=== PATIENT | male | born 1950 | race Caucasian/White ===

== ENCOUNTER 2016-04-17 12:22 | Day surgery (SDC) | payer MEDICARE, MEDICAID ==
[~2016-04-17] VITALS: Ht 165.1 cm; Wt 74.8 kg
--- NOTE | 2016-04-17 14:00 | Operative Note ---
Upper GI Endoscopy Procedure date: 04/17/16 Date of : 54 Procedure:Upper GI Endoscopy Esophagogastroduodenoscopy with cold biopsies and TTS balloon dilation Indications: Mr. Olivia is a 66-year-old gentleman with a history of Jacobson's esophagus. He also has had swallowing difficulty and some episodic emesis. He also has chronic constipation. His last upper endoscopy was more than 5 years ago in [facility]. He is on omeprazole by mouth twice a day. He does have anorexia but no weight loss. All of his blood work has recently been normal. He has been placed on a fiber bowel regimen (MiraLAX plus Citrucel). EGD is performed for further evaluation and follow-up of his Jacobson's. Performing Provider: Javid Hollins MD Referring Provider: Nikko Barton M.D. Sedation: MAC anesthesia Procedure: Prior to the procedure, a history and physical exam was performed, and patients medications and allergies were reviewed. The risks and benefits of the procedure and the sedation options and risks were discussed with the patient. All questions were answered and informed consent was obtained. The patient was brought to the procedure room. Patient identification and proposed procedure were verified by the physician and the nurse. The patient was placed in a left lateral decubitus position and the scope was passed under direct vision. Throughout the procedure, the patient's blood pressure, pulse, and oxygen saturations were monitored continuously. The endoscope was introduced through the mouth, and advanced to the second part of duodenum. The upper GI endoscopy was accomplished without difficulty. The patient tolerated the procedure well. Findings: The scope was passed directly into the upper esophagus and advanced to the third portion of the duodenum. The post bulbar duodenum and duodenal bulb were normal with normal mucosa and conniventes. The scope was withdrawn through a normal duodenal bulb and pylorus into the stomach. There was moderate bile reflux with moderate linear reactive gastritis. Upon retroflexion there was a medium sized 4 -5 cm hiatal hernia. 2 biopsies were taken in the antrum and along the lesser curvature for histology and/or CLOtest. There was a polypoid lesion within the hiatal hernia that was biopsied. The scope was then withdrawn into the esophagus. The diaphragmatic hiatus was at 40 cm. The gastroesophageal junction was at 35-36 centimeters from the incisors. The squamocolumnar junction was at 30 cm from the incisors (Snelling classification C5M6). NBI (narrow band imaging) was used to direct the single set of biopsies at 34 cm to direct area of minor glandular appearance of dysplasia-indeterminant or low-grade. Additional directed biopsies were taken at 32 cm 6. There was no evidence of stricturing. There was a proximal esophageal inlet patch. The entire esophagus was dilated to 60 Setswana/20 mm with a TTS hydrostatic balloon. Immediate complications: None EBL (ml): 0 Impression: 1. Long segment Jacobson's esophagus (C5M6 Snelling classification) status post biopsies 2. Nonerosive gastroesophageal reflux disease with mild esophageal dysmotility 3. Proximal esophageal inlet patch 4. Gastric polyp located proximally within hiatal hernia with 4-5 cm hiatal hernia 5. Marked bile reflux with linear reactive gastritis Recommendations: I will follow-up the biopsies to exclude dysplasia. 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 I would continue PPI therapy at low-dose (20 mg by mouth daily to twice a day) and continue fiber bowel regimen daily (MiraLAX plus Citrucel). I will likely add promotility therapy. If there is any evidence of dysplasia on biopsies, we will discuss radiofrequency ablation or EMR (endoscopic mucosal resection). at [id number]
[2016-04-17 15:29] VITALS: BP 170/95
[2016-04-18] MEDS ORDERED: LISINOPRIL 5MG T5 MG PO (11:01)
[2016-04-18] MEDS ORDERED: LEVOTHYROXIN0.075 M1 PO (11:01)
[2016-04-18] MEDS ORDERED: PRIMIDONE 50 MG50 MG PO (11:01)
[2016-04-18] MEDS ORDERED: OMEPRAZOLE40 MG PO (11:02)
[2016-04-18] MEDS ORDERED: LYRICA50 MG PO (11:02)
[2016-04-18] MEDS ORDERED: ASPIRIN 81MG TA81 MG PO (11:02)
[2016-04-18] MEDS ORDERED: PROPRANOLOL HCL20 MG PO (11:02)
[2016-04-18] MEDS ORDERED: MIRALAX17 GM/PACK PO (11:03)
[2016-04-18] MEDS ORDERED: METOCLOPRAMIDE H5 MG PO (11:03)
== END 2016-04-17 15:05 | disposition home or self-care (01) ==
LOC: SDC 12:22
PROVIDERS: Internal Medicine Gastroenterology
PROC: 0DB38ZX Excision of Lower Esophagus, Via Natural or Artificial Opening Endoscopic, Diagnostic (ICD-10-PCS; 2016-04-17)
PROC: 0D758ZZ Dilation of Esophagus, Via Natural or Artificial Opening Endoscopic (ICD-10-PCS; 2016-04-17)
PROC: 0DB68ZX Excision of Stomach, Via Natural or Artificial Opening Endoscopic, Diagnostic (ICD-10-PCS; principal; 2016-04-17 13:30)
DX: K22.70 Barrett's esophagus without dysplasia (principal); K44.9 Diaphragmatic hernia without obstruction or gangrene; K21.9 Gastro-esophageal reflux disease without esophagitis; K22.4 Dyskinesia of esophagus; K31.7 Polyp of stomach and duodenum
CPT/HCPCS: C1726

== ENCOUNTER 2016-05-20 15:58 | Inpatient (IN) | payer MEDICARE, MEDICAID ==
[~2016-05-20] VITALS: Ht 165.1 cm; Wt 70.5 kg
[~2016-05-20 15:58] MED LIST: ASPIRIN 81MG TA81 MG PO; LEVOTHYROXIN0.075 M1 PO; LISINOPRIL 5MG T5 MG PO; LYRICA50 MG PO; METOCLOPRAMIDE H5 MG PO; MIRALAX17 GM/PACK PO; OMEPRAZOLE40 MG PO; PRIMIDONE 50 MG50 MG PO; PROPRANOLOL HCL20 MG PO
[2016-05-20 16:02] VITALS: BP 186/85
[2016-05-20] MEDS ORDERED: SYNTHROID0.025 MG PO (16:12)
[2016-05-20] MEDS ORDERED: CIPRODEX 0.3%-7.5 ML OT (16:15)
[2016-05-20] MEDS ORDERED: INDERAL10 MG PO (16:30)
[2016-05-20 16:37] LABS: HEMOGLOBIN 14.5 g/dL (14.1-18.0); LYMPH # 1.3 K/mm3 (0.7-4.5); LYMPH % 23.5 % (10-50)
--- NOTE | 2016-05-20 16:47 | Emergency Room Report ---
History of Present Illness Time Seen by 0601 Presenting Problem in Triage Pt arrived:Wheelchair Presenting Problem:PT MEDS WERE ADJUSTED PER MD. FAMILY STATES NOW THAT HIS SHAKING/TREMORS HAVE BECOME WORSE AND PT BECOMES VIOLENT AND AGITATED BECAUSE THE TREMORS WONT STOP. 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 N Clinical Suspician of Infection? N Mental Status: 1 - Regular (Normal Baseline) Sepsis Risk:Possible Sepsis Risk Have you (or family members/close friends) recently traveled outside the [place]? N If Yes, where/when: Have you had exposure to infectious disease within the past month? TB? Other? Specify: Comment Pt is a mentally challenged WM who has been on meds for an Essential Tremor for quite some time. He has also had his GB rremoved and has history of Acid Reflux and Parag's Esophagus. He has been taking Omeprozole and Zantac and until recently was also taking Reglan, but the reglan was discontinued recently and his dose of Primidone was decreased to 50 mg (4 tabs) po BID instead of TID. He is also on Propranolol for the tremors. Over the past few days he has become more agitated because the tremors have gotten worse and now also having abdominal pain that has gotten worse. He had an EGD done about a month ago and nothing acute was seen at that time. Cardiac Chest Pain Chest pain indicative of cardiac No ALLERGIES Coded Allergies: No Known Allergies (04/13/16) Home Medications Reported Medications Propranolol Hcl (Inderal) 10 MG PO BID #60 Primidone (Primidone) 200 MG PO BID Levothyroxine Sodium (Synthroid 0.025MG) 0.025 MG PO DAILY CIPROFLOXACIN HCL/DEXAMETH (Ciprodex Otic Suspension) 4 DROP OT BID #8 LISINOPRIL (Lisinopril) 5 MG PO DAILY Omeprazole (Omeprazole 40MG) 20 MG PO DAILY ASPIRIN (Aspirin) 81 MG PO DAILY Polyethylene Glycol 3350 (Miralax) 17 GM PO DAILY History Medical History General CAD? No Angina: No TN: No Hypertension? Yes Hyperlipidemia? No CHF? No DVT? No PE? No COPD? No Asthma? No Anemia? No GERD? Yes Gastric ulcers? No GI Bleed? No Hernia? Yes Thyroid Problems? Yes Hypothyroidism? Yes CVA? No Seizures? No Diabetes? No Renal Insuffiency? No End Stage Renal Disease? No UTI? No Stones? No BPH? No GB Disease: No Nephritic Syndrome? No Asplenia? No Hepatitis? No Sickle Cell Disease? No Arthritis? No Migraines? No Cataracts? No Glaucoma? No MRSA? No HIV? No TB? No Anxiety? No Depression? No Cancer? No More? Yes Additional hx: BARRETS ESOPHAGUS RECENT BILE REFLUX DIAGNOSIS Immunization Hx DT/Tetanus Unknown Surgical Hx Previous Surgery?Y ENDOSCOPY Cholecystectomy TISSUE REMOVED FROM LEG Social History Smoking Hx Smoker: Never Smoker Tobacco: No Are you/the child exposed to second-hand smoke: No Alcohol Alcohol: No Review of Systems All Other Systems Reviewed and Negative Constitutional see HPI Gastrointestinal see HPI Psychiatric/Neurological see HPI Physical Exam Vital Signs Vital Signs Date Time Temp Pulse Resp B/P Pulse O2 O2 Flow FiO2 Ox Delivery Rate 05/20 1848 67 18 167/93 93 05/20 1734 97.5 72 18 144/80 93 05/20 1640 88 18 172/81 94 05/20 1602 97.7 90 20 186/85 97 General Appearance no apparent distress Respiratory Status No: respiratory distress. Lung Sounds bilateral: normal breath sounds. Cardiovascular normal exam, regular rate/rhythm Gastrointestinal distended (in epigastrium), no guarding, no rebound, tenderness Neurologic essential tremors in both hands Medical Decision Making LABS/Meds/Orders Pt receiving controlled substance in ED? No Results/Orders Laboratory Tests 05/20/16 1610: Amylase 82, Lipase 211 05/20/16 1610: Sodium 142, Potassium 4.1, Chloride 104, Carbon Dioxide 29, BUN 25 H, Creatinine 1.3, Estimated Creat Clear 61, Estimated GFR (MDRD) 56, Glucose 120 H, Calcium 9.4, Total Bilirubin 0.2, AST 19, ALT 19, Alkaline Phosphatase 77, Total Protein 7.9, Albumin 3.6, Globulin 4.3 H, Albumin/Globulin Ratio 0.8 L, WBC 5.5, RBC 4.14 L, Hgb 14.5, Hct 43.2, MCV 104.3 H, RDW 12.6, Plt Count 217, MPV 6.3 L, Gran % 65.3, Gran # 3.6, Lymphocytes % 23.5, Monocytes % 7.3, Eosinophils % 3.0, Basophils % 0.9, Lymphocytes # 1.3, Monocytes # 0.4, Eosinophils # 0.2, Basophils # 0.1, PUBS MCHC 33.6, MCH 35.1 H Current Medication Orders Sig/Marcio Start time Last Medication Dose Route Stop Time Status Admin Pantoprazole Sodium 0 .STK-MED ONE 05/20 1646 DC IV Sodium Chloride 1,000 ML .STK-MED ONE 05/20 1646 DC IV Multi-Ingredient GI 60 ML ONCE ONE 05/20 164 DC 05/20 Drug PO 05/20 1646 1650 Multi-Ingredient GI 0 .STK-MED ONE 05/20 1645 DC Drug PO Ondansetron HCl 4 MG ONCE ONE 05/20 1645 DC 05/20 IV 05/20 1646 1650 Ondansetron HCl 0 .STK-MED ONE 05/20 1645 DC .ROUTE Pantoprazole Sodium 40 MG ONCE ONE 05/20 1645 DC 05/20 IV 05/20 1646 1650 Sodium Chloride 10 ML ONCE ONE 05/20 1645 DC IV 05/20 1646 Sodium Chloride 1,000 ML .Q4H 05/20 1645 AC 05/20 IV 05/20 2044 1650 Sodium Chloride 10 ML PRN PRN 05/20 1645 AC IV 05/21 1640 Sodium Chloride 10 ML PRN PRN 05/20 1630 AC 05/20 IV 05/21 1626 1650 Orders Procedure Date/time Status DIET-NOTHING BY MOUTH 05/21 B Active Decision to admit 05/[address] ABD/PELVIS REQ 05/20 1753 Complete ABDOMEN-FLAT & UPRIGHT 05/20 1641 Active LIPASE 05/20 1641 Complete AMYLASE 05/20 1641 Complete IV SALINE LOCK 05/20 162 Active CBC WITH AUTO DIFF 05/20 162 Complete CHEM 12 PROFILE 05/20 162 Complete Departure Departure Time of Disposition 1916 Disposition Still a Patient Clinical Impression Primary Impression: Abdominal pain Qualifiers: Abdominal location: upper abdomen, unspecified Qualified Code: R10.10 - Upper abdominal pain, unspecified Secondary Impressions: Sigmoid volvulus Condition STABLE Additional Instructions OBS to Dr. Barton by Dr. Knapp with consult to Dr. Fitzpatrick Discharge Counseling Counseled pt/family regarding diagnosis, test results, medications/RX, follow up needs ED Critical Care Critical Care No If Critical Care minutes are documented, the time involved in the performance of seperately reportable procedures was not counted toward critical care time documented. I directly delivered medical care to this critically ill and/or injured patient. Timely evaluation and treatment was necessary to address the significant organ system(s) dysfunction present in this patient. at 1918
--- NOTE | 2016-05-20 18:50 | RADIOLOGY REPORT PS360 ---
CT ABD PELVIS W/O CONTRAST COMPARISON: None HISTORY: Persistent abdominal pain for 2 months TECHNIQUE: Multiple axial scans obtained from the diaphragms to the pelvic floor and were performed without IV or oral contrast. Sagittal coronal reformats were evaluated as well. FINDINGS: Scans through the lower chest show small area of postinflammatory scarring in the right posterior gutter. There is no pleural fluid. There is a moderately large hiatal hernia. The liver and spleen are grossly normal. The pancreas is normal, there has been a previous cholecystectomy. The adrenal glands are normal. The kidneys are lower limits normal in size and there is an unusual anterior posterior axis of the right kidney and normal variation. There are faint opacities in the calyceal distribution of both kidneys suggesting possibility of medullary sponge kidney. There is no obstructive uropathy of either kidney. There are mildly dilated fluid-filled loops of mid and distal small bowel. I do not definitely identify the appendix but there are no pericecal inflammatory changes noted. There is moderate scattered stool in the ascending and transverse and proximal descending colon. There is a markedly distended loop of bowel in the midabdomen which though not classic in appearance could represent an evolving or partial sigmoid volvulus. The urinary bladder is partially decompressed showing a diffusely thickened wall. The prostate is normal in size. IMPRESSION: 1. Markedly distended air-filled loop of bowel in the midabdomen appearance suggests possibility of early or evolving sigmoid volvulus and suggest clinical correlation and possibly surgical consult. 2. Large hiatal hernia 3. 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
[2016-05-20 19:30] VITALS: BP 145/85
[2016-05-20 20:00] VITALS: BP 145/85
[2016-05-20 23:39] VITALS: BP 107/50
[2016-05-21] VITALS (7 sets, daily range): BP systolic 112–150; BP diastolic 61–76
[2016-05-21 07:42] LABS: LYMPH # 1.4 K/mm3 (0.7-4.5); LYMPH % 25.4 % (10-50)
[2016-05-21 07:59] LABS: HEMOGLOBIN 12.1 g/dL (14.1-18.0)
--- NOTE | 2016-05-21 08:32 | HISTORY AND PHYSICAL REPORT ---
Demographics: Admit date: 05/20/16 Chief complaint: Abdominal pain/vomiting PRIMARY DIAGNOSIS: ABD PAIN; SIGMOID VOLVULUS Allergies: Coded Allergies: No Known Allergies (04/13/16) History of present illness: History of present illness: Osbaldo is a 66-year-old white male who is intellectually disabled, lives with his mother and has so for all of his life with so far fairly good living situation. He has suffered from essential tremor and has been on beta андрей and primidone for many decades. Recently he's had some episodes of vomiting, reflux disease and increasing abdominal pain, underwent upper endoscopy by Dr. Hollins which revealed hiatal hernia and significant gastritis-a previously known diagnosis and has been placed on Reglan and proton pump inhibitor. Came to my office early last week with increasing problems with tremor, ataxia and some confusion over his baseline. I recommended stopping the Reglan, cutting back on primidone. Family really has noticed no difference except tremor has become worse and yesterday he had a severe episode of abdominal pain which prompted some acting out behaviors and agitation including throwing things in the household and striking out at family which is very unusual for him. Brought to the emergency department where laboratory studies were fairly nondiagnostic CT scan showed findings consistent with sigmoid volvulus in the left lower quadrant. Admitted for IV fluids and pain control and surgery consultation. This morning he's been fine overnight vis--vis agitation behaviors and reports that he's feeling better but does note that he occasionally has pain in his left lower quadrant that "feels like a fire on the inside." Past medical history: Family HX Diabetes Yes CAD Yes Hypertension Yes Hyperlipidemia Yes Cancer Yes TB No Immunization HX DT/Tetanus Unknown Pneumonia Unknown Other UNABLE TO OBTAIN INFO, MOM NOT AT BEDSIDE TB Test in last year No General CAD? No Angina: No ND: No Hypertension? Yes Hyperlipidemia? No CHF? No DVT? No PE? No COPD? No Asthma? No Anemia? No GERD? Yes Gastric ulcers? No GI Bleed? No Hernia? Yes Thyroid Problems? Yes Hypothyroidism? Yes CVA? No Seizures? No Diabetes? No Renal Insuffiency? No UTI? No Stones? No BPH? No GB Disease: No Nephritic Syndrome? No Asplenia? No Hepatitis? No Sickle Cell Disease? No Arthritis? No Migraines? No Cataracts? No Glaucoma? No MRSA? No HIV? No TB? No Anxiety? No Depression? No Cancer? No More? Yes Additional hx: BARRETS ESOPHAGUS RECENT BILE REFLUX DIAGNOSIS Past Surgical HX Previous Surgery?Y ENDOSCOPY Cholecystectomy TISSUE REMOVED FROM LEG Current home meds: Reported Medications Propranolol Hcl (Inderal) 10 MG PO BID #60 Primidone (Primidone) 200 MG PO BID Levothyroxine Sodium (Synthroid 0.025MG) 0.025 MG PO DAILY CIPROFLOXACIN HCL/DEXAMETH (Ciprodex Otic Suspension) 4 DROP OT BID #8 LISINOPRIL (Lisinopril) 5 MG PO DAILY Omeprazole (Omeprazole 40MG) 20 MG PO DAILY ASPIRIN (Aspirin) 81 MG PO DAILY Polyethylene Glycol 3350 (Miralax) 17 GM PO DAILY Social Hx: Smoking HX Tobacco No Are you/the child exposed to second-hand smoke: No Alcohol Alcohol: No Hx of Drug Use Drug Use? No Patien't marital status is single Patient's support system is excellent Review of systems: Constitutional weakness. No: fever, malaise. Respiratory No: no symptoms reported. Cardiovascular No no symptoms reported Gastrointestinal/Abdominal see HPI Genitourinary No: no symptoms reported. Musculoskeletal back pain. No: gout, joint pain, joint swelling. Neurological Yes: see HPI. Exam: Lab data for last 24 hours: Laboratory Tests 05/21/16 0605: Sodium 145, Potassium 4.1, Chloride 110 H, Carbon Dioxide 26, BUN 21 H, Creatinine 1.1, Estimated Creat Clear 68, Estimated GFR (MDRD) 67, Glucose 85, Calcium 8.2 L, WBC 5.4, RBC 3.49 L, Hgb 12.1 L, Hct 36.3 L, MCV 104.1 H, RDW 12.8, Plt Count 198, MPV 6.6 L, Gran % 65.3, Gran # 3.5, Lymphocytes % 25.4 , Monocytes % 6.8, Eosinophils % 1.9, Basophils % 0.7, Lymphocytes # 1.4, Monocytes # 0.4, Eosinophils # 0.1, Basophils # 0.0, PUBS MCHC 33.1, MCH 34.4 H 05/20/16 1610: Amylase 82, Lipase 211 05/20/16 1610: Sodium 142, Potassium 4.1, Chloride 104, Carbon Dioxide 29, BUN 25 H, Creatinine 1.3, Estimated Creat Clear 61, Estimated GFR (MDRD) 56, Glucose 120 H, Calcium 9.4, Total Bilirubin 0.2, AST 19, ALT 19, Alkaline Phosphatase 77, Total Protein 7.9, Albumin 3.6, Globulin 4.3 H, Albumin/Globulin Ratio 0.8 L, WBC 5.5, RBC 4.14 L, Hgb 14.5, Hct 43.2, MCV 104.3 H, RDW 12.6, Plt Count 217, MPV 6.3 L, Gran % 65.3, Gran # 3.6, Lymphocytes % 23.5, Monocytes % 7.3, Eosinophils % 3.0, Basophils % 0.9, Lymphocytes # 1.3, Monocytes # 0.4, Eosinophils # 0.2, Basophils # 0.1, PUBS MCHC 33.6, MCH 35.1 H Admission vital signs: 1ST Vital Signs Result Date Time Pulse Ox 97 05/20 1602 B/P 186/85 05/20 1602 Temp 97.7 05/20 1602 Pulse 90 05/20 1602 Resp 20 05/20 1602 O2 Delivery ROOM AIR 05/20 1930 Additional information: Patient is alert, pleasant, previously noted mild facial anomaly. Anterior lung hernandez are clear, heart rate regular. Abdomen is soft and nontender to palpation the patient reports continued "insidel" pain. No edema noted. Patient wearing sequential compression device boots. Essential tremor remains noted, mild, worse on the left side. Plan: Problem List 1. Abdominal pain Plan: Patient is much more comfortable at this point with IV fluids and pain control. Await surgical consultation. CT scan reviewed with family. at 0832
--- NOTE | 2016-05-21 09:47 | CONSULT NOTE ---
Standard Demographics Patient Demo Date of Consultation: 05/21/16 Referring Provider: Nikko Barton MD Reason for Consultation: abdominal pain, possible sigmoid volvulus PRIMARY DIAGNOSIS: ABD PAIN; SIGMOID VOLVULUS Allergies: Coded Allergies: No Known Allergies (04/13/16) History of Present Illness Chief Complaint: Abdominal pain History of Present Illness: Patient is a 66-year-old white male with mental retardation and essential tremor. He has had a several month history of various abdominal complaints. He has been seen by Dr. Yohannes Hollins and underwent upper endoscopy several weeks ago. This revealed findings of Jacobson's esophagus, reflux esophagitis, bile gastritis, gastric polyp. Recently he has had some increasing tremor and some of his medications were altered last week. Patient has had some recent increasing abdominal pain apparently although history is somewhat difficult to obtain. Patient had some increasing agitation and presented to the emergency department yesterday. His workup included plain abdominal x-ray followed by a noncontrast CT scan which reportedly revealed findings of possible early evolving sigmoid volvulus. He was admitted for inpatient management and consultation. This morning patient feels somewhat better. Of note, the patient has had previous colonoscopy in [place] which was reportedly normal several years ago. Past Medical History Reports: hypertension, GERD. Surgical History Previous Surgery?Y ENDOSCOPY Cholecystectomy TISSUE REMOVED FROM LEG Allergies Coded Allergies: No Known Allergies (04/13/16) Medications: Reported Medications Propranolol Hcl (Inderal) 10 MG PO BID #60 Primidone (Primidone) 200 MG PO BID Levothyroxine Sodium (Synthroid 0.025MG) 0.025 MG PO DAILY CIPROFLOXACIN HCL/DEXAMETH (Ciprodex Otic Suspension) 4 DROP OT BID #8 LISINOPRIL (Lisinopril) 5 MG PO DAILY Omeprazole (Omeprazole 40MG) 20 MG PO DAILY ASPIRIN (Aspirin) 81 MG PO DAILY Polyethylene Glycol 3350 (Miralax) 17 GM PO DAILY Additional medical history: Jacobson's esophagitis Hypothyroidism Smoking Hx Tobacco: No Smoker: Never Smoker Type: N/A Packs/day: N/A Are you/the child exposed to second-hand smoke: No Alcohol Alcohol: No Hx of Drug Use Drug Use? No Review of Systems Constitutional No: chills. Skin No: abrasions. Immune/allergy No: anaphalaxis. Eyes No: diploplia. ENT No: hearing loss. Respiratory No: shortness of air. Cardiovascular No: chest pain. GI Positive for: abdomen. (male) No: hematuria. Musculoskeletal No: extremity swelling. Heme No: bleeding. Endocrine No: cold intolerance. Neurological Positive for: confusion. Physical Exam Exam General appearance no acute distress Respiratory clear to auscultation Cardiovascular normal heart sounds Abdomen non-tender, soft, tympanic to percussion Findings/Data On examination his abdomen is slightly distended. No appreciable tenderness. Somewhat tympanic Plan Plan: I reviewed his plain abdominal x-rays. Patient's clinical scenario and x-rays are not consistent with classic sigmoid volvulus. He could potentially have an intermittent volvulus. However, the films overall have more of an appearance consistent with diffuse colonic ileus versus partial colonic obstruction due to potential narrowing of the distal sigmoid colon. At this time I would plan for possible contrast enema tomorrow morning for diagnostic and therapeutic purposes. Also plan for gastroenterology consultation. at 0976
--- NOTE | 2016-05-21 11:24 | PHARMACY CLINIC NOTE ---
Patient Demographics Patient Demographics Admission date: 05/20/16 Date: 05/21/16 Time: 1124 Allergies Coded Allergies: No Known Allergies (04/13/16) HEIGHT- FT: 5 IN: 5.00 K.534 VTE General Information Labs: Laboratory Tests 05/21 05/20 0605 1610 Hematology Hgb (14.1 - 18.0 g/dL) 12.1 L 14.5 Hct (42.0 - 52.0 %) 36.3 L 43.2 Plt Count (142 - 424 K/mm3) 198 217 Disclaimer The following section includes nursing documentation that has been pulled in for pharmacy review. Patient's VTE score: 1 Patient's VTE Risk: VERY LOW RISK Clinical trial participant? No VTE prophylaxis NQF [id number] VTE prophylaxis ordered? Yes Type of prophylaxis/treatment: ICD at 1124
--- NOTE | 2016-05-21 14:14 | RADIOLOGY REPORT PS360 ---
ABDOMEN-FLAT UPRIGHT COMPARISON: None HISTORY: Abdominal pain and some distention TECHNIQUE: AP upright chest, KUB and upright abdomen FINDINGS: There is generalized cardio megaly with biventricular enlargement. The lung hernandez are grossly clear of infiltrate. There is prominent gaseous distention of the dilated loop of large bowel in the mid abdomen. In view of the location and appearance a sigmoid volvulus is a possibility. Otherwise the bowel gas pattern is unremarkable. There is a small amount stool in the rectum. IMPRESSION: Prominent gaseous distention of a loop of colon mid abdomen possibly representing a sigmoid volvulus or simply prominent gaseous distention secondary to obstipation.
[2016-05-22] VITALS (7 sets, daily range): BP systolic 129–141; BP diastolic 70–80
--- NOTE | 2016-05-22 07:36 | ACUTE CARE PROGRESS NOTE (QUA) ---
Progress Notes Subjective Date 05/22/16 Time 0736 Note Feels a little better overnight, but continues to state that he "might have" some pain in his belly. Abdomen soft and nontender. Breathing easily. Objective Findings Last VS-Temp:97.7 B/P:129/77 Pulse:70 Resp:16 SaO2:94 ROOM AIR Last weight lbs:155 oz:8 K.534 Method:Bed Scales Assessment/Plan Problem List 1. Abdominal pain Qualifiers: Abdominal location: upper abdomen, unspecified Qualified Code: R10.10 - Upper abdominal pain, unspecified Patient condition Improving, appreciate surgical note and consultation. Follow after Gastrografin enema. This inpt stay is expected to cross 2 MNs from start of care Yes at 0736
--- NOTE | 2016-05-22 08:33 | SURGEON PROGRESS NOTE ---
Subjective data Subjective data: ANTIONETTE LOU is a 66 M .Patient denies complaint of nausea and vomitting.He reports his last pain level as 0 on a 0-10 pain scale. No complaints. Denies pain at this time. Assessment findings Assessment Exam General appearance: normal appearance, alert ABD: soft, no tenderness Patient plan Plan: IV fluids Additional data: Plan for contrast enema today. at 0833
--- NOTE | 2016-05-22 16:01 | ACUTE CARE PROGRESS NOTE (QUA) ---
Progress note: - Contrast enema revealed somewhat distended colon without obstruction. Dr. Hollins is planning some medical and dietary management. I will go ahead and order a diet. at 1608
--- NOTE | 2016-05-22 16:16 | RADIOLOGY REPORT PS360 ---
ABDOMEN-FLAT UPRIGHT Ordering Physician: Nikko Barton MD Patient Age: 66 years: Male HISTORY: OBSTRUCTION. Abdominal pain TECHNIQUE: Flat and upright abdomen FINDINGS When compared to the previous CT abdomen 05/20/2016 there is been improvement with less gaseous distention at the dilated gas-filled sigmoid colon. Previously on mechanical pencils assembler film of measurement over 12 cm diameter and today on supine film sigmoid measuring up to 10 cm which likely includes 20% magnification on plain film as well.. Moderate stool is seen today throughout left colon and to lesser degree the right colon. Stool at rectum.. Minimal gas throughout small bowel. No organomegaly previous cholecystectomy. Linear atelectasis left lung base IMPRESSION Overall improvement. . Less gaseous distention the prominent dilated loop of sigmoid colon which is again seen arising from the pelvis. vs CT study from 05/10/2016.. Moderate stool and gas at the colon. Mild/moderate gas throughout nondilated small bowel.
--- NOTE | 2016-05-22 16:16 | RADIOLOGY REPORT PS360 ---
ABDOMEN-FLAT UPRIGHT Ordering Physician: Nikko Barton MD Patient Age: 66 years: Male HISTORY: OBSTRUCTION. Abdominal pain TECHNIQUE: Flat and upright abdomen FINDINGS When compared to the previous CT abdomen 05/20/2016 there is been improvement with less gaseous distention at the dilated gas-filled sigmoid colon. Previously on emergency room physician film of measurement over 12 cm diameter and today on supine film sigmoid measuring up to 10 cm which likely includes 20% magnification on plain film as well.. Moderate stool is seen today throughout left colon and to lesser degree the right colon. Stool at rectum.. Minimal gas throughout small bowel. No organomegaly previous cholecystectomy. Linear atelectasis left lung base IMPRESSION Overall improvement. . Less gaseous distention the prominent dilated loop of sigmoid colon which is again seen arising from the pelvis. vs CT study from 05/10/2016.. Moderate stool and gas at the colon. Mild/moderate gas throughout nondilated small bowel.
--- NOTE | 2016-05-22 17:06 | CONSULT NOTE ---
Consult Note Note: Gastroenterology Consultation Mr. Olivia is a 66-year-old cognitively impaired gentleman with a prior history of Jacobson's esophagus and chronic constipation. He was having some swallowing difficulty/dysphagia and episodic emesis. He was on omeprazole twice a day. His EGD by me on 04/17/2016 showed long segment Jacobson's esophagus with 5-6 cm hiatal hernia and 5-6 cm segment of Jacobson's esophagus. I did reduce the omeprazole to once daily and added low-dose Reglan. The patient did get combative with some probable metoclopramide side effect and possibly extrapyramidal symptoms. The patient also had increased vomiting, watery stools and several falls. He had a follow-up appointment scheduled on May 19 and was told by our office to come to the emergency department. The patient did have a CAT scan of the abdomen that showed a markedly distended air-filled loop of bowel in the mid abdomen suggestive of an evolving sigmoid volvulus. He had a large hiatal hernia. The patient has been seen by Dr. Lavelle Fitzpatrick M.D. He did have a barium enema today. The barium enema shows a very redundant sigmoid colon with chronic colonic redundancy. The patient has had some chronic constipation. Physical Examination: Gen.: The patient is a well-developed well-nourished older middle-aged older mentally handicapped male individual in no acute distress HEENT: Normocephalic/atraumatic extraocular movements are intact anicteric Neck: Supple no lymphadenopathy Chest: Clear to auscultation Cardiovascular: Regular rate and rhythm Abdomen: Normoactive bowel sounds soft, mild distention but soft and nontender, no hepatosplenomegaly Extremities: No edema Impression/Plan: I do feel the patient has some of these problems related to new therapy with metoclopramide even at low dose. He had falls and possibly extrapyramidal side effects. This should be discontinued. I would consider a erythromycin as a promotility therapy at 250 mg by mouth before meals. I also feel that the fiber bowel regimen may have exacerbated his problems with obstipation and colonic distention. I will not use this regimen but replace this with Cytotec/ Misoprostol 200 g by mouth twice a day. I would slowly advance from clear liquids to low residue diet. I would like for him to follow-up in the office within the next couple of weeks for clinical improvement. at 1937
[2016-05-23] VITALS (8 sets, daily range): BP systolic 125–162; BP diastolic 69–88
--- NOTE | 2016-05-23 07:33 | ACUTE CARE PROGRESS NOTE (QUA) ---
Progress Notes Subjective Date 05/23/16 Time 0732 Note Patient had a good supper last night but this morning after breakfast had some vomiting which his mom states is a fairly typical phenomenon for him as he has problems swallowing and has a sore throat any times. Previous speech therapy evaluation has been unrevealing. GI consultation reviewed, I personally spoke with Dr. Gonzalo anaya about his case. Exam reveals clear lungs, regular heart rate, patient's actively retching some yellow fluid. Abdomen however, is much softer with no left lower quadrant tenderness this morning. Objective Findings Last VS-Temp:97.9 B/P:125/69 Pulse:81 Resp:18 SaO2:98 ROOM AIR Last weight lbs:155 oz:8 K.534 Method:Bed Scales Assessment/Plan Problem List 1. Abdominal pain Qualifiers: Abdominal location: upper abdomen, unspecified Qualified Code: R10.10 - Upper abdominal pain, unspecified Patient condition Improving, speech therapy evaluation to assess swallowing and sore throat. Modified barium swallow if necessary. This inpt stay is expected to cross 2 MNs from start of care Yes at 0797
--- NOTE | 2016-05-23 15:49 | ST BEDSIDE DYSPHAGIA EVAL ---
SUBJECTIVE-DYSPHAGIA Date: 05/23/16 Time: 1515 Eval Type: Initial Certification - Admitted Date: 05/21/16 Primary Diagnosis: ABD PAIN; SIGMOID VOLVULUS Reason for Consult: DYSPHAGIA Pt/Caregiver Concerns: ODYNOPHAGIA Onset of symptoms- 05/20/16 0900 MEDICAL HX UNKNOWN Symptoms have worsened? NO improved? NO resolved? NO since onset. Current Diet: REGULAR/THINS Allergies Coded Allergies: No Known Allergies (04/13/16) Home Medications Reported Medications Propranolol Hcl (Inderal) 10 MG PO BID #60 Primidone (Primidone) 200 MG PO BID Polyethylene Glycol 3350 (Miralax) 17 GM PO DAILY Levothyroxine Sodium (Synthroid 0.025MG) 0.0375 MG PO DAILY CIPROFLOXACIN HCL/DEXAMETH (Ciprodex Otic Suspension) 4 DROP OT BID #8 LISINOPRIL (Lisinopril) 5 MG PO DAILY Omeprazole (Omeprazole 40MG) 20 MG PO DAILY ASPIRIN (Aspirin) 81 MG PO DAILY Is this assessment r/t stroke? No OBJECTIVE COMMUNICATION/COGNITION Barriers to communication/cog? No ORAL-MOTOR STRUCTURE/FUNCTION Structure/Function WFL: Labial, Buccal, Lingual, Velar, Mandibular. Facial Asymmetry None Laryngeal Function Strong: Voluntary Cough, Throat Clearing. Vocal Quality Normal Dentition Good dentition DYSPHAGIA SIGNS W/CONSISTENCY Any S/S of Dysphagia? Yes Other- Solid ASSESSMENT/PLAN ASSESSMENT Impression Mr. Olivia, a 66 year old male, was referred for a bedside evaluation of swallowing by his physician, Dr. Barton. Mr. Olivia's mother and sister were present for evaluation. It was reported that Mr. Olivia frequently vomits after meals but not after every meal. He reports that chicken is difficult for him, his mother reports it is actually a variety of foods that cause him trouble. He reports "food gets stuck" in throat frequently and that is why he feels the need to vomit. Mr. Olivia was given the following consistencies: thins via straw and open cup and regular. No signs of dysphagia were noted however due to the vomiting on solids, it is recommended that he be placed on a mechanical soft diet until a modified barium swallow study can be completed. Speech therapy will be determined on the results of modified barium swallow. At this time, it is recommended that Mr. Olivia drink via cups with lid and straw due to tremors. PLAN RECOMMENDATIONS Further skill serv. indicated Yes Pending instrumental exam res. MBS Diet: Mechanical ground with thin liquids SWALLOW GUIDELINES Standard Aspiration Prec., Liquids Given (Straw Only), Alt Bite w/Sip Thru Meal, small bites/small sips PATIENT/CAREGIVER EDUCATION Able-recall/restate what told? Yes RN educated on Diet Consistency, Swallow Guidelines Rehab Medicare G Code Plan Medicare/G Code eligible? 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
--- NOTE | 2016-05-23 15:53 | RADIOLOGY REPORT PS360 ---
[id number] Ordering Physician: Nikko Barton MD Patient Age: 66 years: Male HISTORY: POSSIBLE COLONIC OBSTRUCTION.. Abdominal pain more pronounced yesterday. Less evident today possible Episode of volvulus suggested TECHNIQUE: Gastrografin enema procedure performed by Dr. Mendez 3 minutes 31 seconds fluoroscopy time FINDINGS Patient was tipped with retrograde filling of the colon. . The patient was not prepped some encountered stool throughout the colon which limits this study and is particularly for evaluating for filling defects. The main goal this study was to exclude obstruction and evaluate for volvulus There is a large caliber redundant floppy loop of sigmoid colon. This] arises out of the pelvis into the upper abdomen.. . Once a large volume sigmoid was filled there was eventual free flow of the [facility] contrast through this large redundant sigmoid into the left colon. No obstructing lesions encountered. No twist a bowel. No restriction evident. EncounteredMinimal tone throughout colon with-. Certainly no spasm encountered. Only minor contractions seen at the left colon. Numerous scattered diverticuli seen throughout the proximal sigmoid and left colon with scattered diverticuli throughout the entire colon; including a few. In the transverse and right colon. There is actually good filling of the low-lying cecum. No significant reflux into the terminal ileum. Again a generous amount of stool encountered, particularly at the right and transverse colon, prevents evaluation for filling defects on today's study. Postevacuation film was performed and shows actually fairly good clearing of the [facility] contrast from the distended sigmoid colon. It appears somewhat decompressed a postevacuation. There is only mild clearing of the liquid contrast from the left colon Images reviewed with Dr. Hollins IMPRESSION: 1. Large dilated floppy redundant loop of sigmoid colon encountered.. No obstructing or constricting lesions. No volvulus This prominent loop of redundant sigmoid extends from the pelvis into the upper abdomen . Contrast flows freely through this loop into the remainder the colon.. With. No restriction. No obstruction. No twisting or volvulus evident The prominent caliber of sigmoid likely reflects sequela from chronic constipation.. Clinical correlation required . (I would note that there was surprisingly good clearing of the [facility] contrast from the distended sigmoid colon on postevacuation film.) 2. Colonic diverticulosis diverticuli throughout the entire colon.. Most extensive diverticulosis is seen at mid & proximal sigmoid,, then continuing into the left colon. No diverticulitis evident.
[2016-05-24 00:20] VITALS: BP 123/68
[2016-05-24 04:00] VITALS: BP 122/69
--- NOTE | 2016-05-24 07:40 | ACUTE CARE PROGRESS NOTE (QUA) ---
Progress Notes Subjective Date 05/24/16 Time 0738 Note Overall patient feels pretty good. He had a bowel movement yesterday, no complaints of abdominal pain. Lungs are clear, heart rate regular, abdomen is soft and nontender. Objective Findings Last VS-Temp:97.5 B/P:122/69 Pulse:78 Resp:18 SaO2:95 ROOM AIR Last weight lbs:155 oz:8 K.534 Method:Bed Scales Assessment/Plan Problem List 1. Abdominal pain Qualifiers: Abdominal location: upper abdomen, unspecified Qualified Code: R10.10 - Upper abdominal pain, unspecified Patient condition Improving Plan: continue current care, modified barium swallow today. Continue changed GI medications. This inpt stay is expected to cross 2 MNs from start of care Yes at 0739
[2016-05-24 07:50] VITALS: BP 142/76
[2016-05-24 09:03] VITALS: BP 142/76
--- NOTE | 2016-05-24 13:53 | ST MODIFIED BARIUM SWALLOW ---
SUBJECTIVE-DYSPHAGIA Date: 05/24/16 Time: 1314 Eval Type: Re-Evaluation/Revised POC - Admitted Date: 05/21/16 Primary Diagnosis: ABD PAIN; SIGMOID VOLVULUS Reason for Consult: Dysphagia Pt/Caregiver Concerns: Patient's family is concerned that when Mr. Olivia eats he has food stuck in his throat causing him to cough, choke and vomit. Onset of symptoms- 05/20/16 0900 MEDICAL HX UNKNOWN Symptoms have worsened? no improved? no resolved? no since onset. Current Diet: Mechanical soft diet Allergies Coded Allergies: No Known Allergies (04/13/16) Home Medications Reported Medications Propranolol Hcl (Inderal) 10 MG PO BID #60 Primidone (Primidone) 200 MG PO BID Polyethylene Glycol 3350 (Miralax) 17 GM PO DAILY Levothyroxine Sodium (Synthroid 0.025MG) 0.0375 MG PO DAILY CIPROFLOXACIN HCL/DEXAMETH (Ciprodex Otic Suspension) 4 DROP OT BID #8 LISINOPRIL (Lisinopril) 5 MG PO DAILY Omeprazole (Omeprazole 40MG) 20 MG PO DAILY ASPIRIN (Aspirin) 81 MG PO DAILY Is this assessment r/t stroke? No OBJECTIVE COMMUNICATION/COGNITION Barriers to communication/cog? Yes Orientation POS: Name, Place, Day, Date, Year. Follows Commands POS: Follows 1-step commands, Follows 2-step commands. Able to remember swallow strategies? Yes Intelligibility Good Barriers to communication: Impaired cognition ORAL-MOTOR STRUCTURE/FUNCTION Structure/Function WFL: Labial, Buccal, Lingual, Velar, Mandibular. Facial Asymmetry None Laryngeal Function Strong: Voluntary Cough, Throat Clearing. Vocal Quality Normal Dentition Poor dentition RESPIRATORY STATUS/HISTORY Is resp status/hx a concern? No DYSPHAGIA SIGNS W/CONSISTENCY Any S/S of Dysphagia? No VIDEO SWALLOW REPORT Radiologist: Ward HERNANDEZ,Omega Shukla Level of consciousness: Alert Position (degrees): 90 ORAL STAGE Consistencies used for study: Thin, Pudding, Pureed, Mechanical Soft, Solid - WFL: Bolus Formation:, Initiation of Swallow:. - No: Otilio.spilled into pharynx, Oral Residue. PHARYNGEAL STAGE Consistencies used for study: Thin, Pudding, Pureed, Mechanical Soft, Solid, Ice Delayed Swallow Reflex? No Epiglottic Closure WFL Penetration-Laryngeal Vestibul No - Aspiration? No Pharyngeal Residue? Yes ASSESSMENT/PLAN ASSESSMENT Impression Mr. Olivia, a 66 year old male, was referred by Dr. Barton for a MBS following a bedside evaluation of swallowing. Mr. Olivia's mother and sister were present for evaluation. It was reported that Mr. Olivia frequently vomits after meals but not after every meal. He reports that chicken is difficult for him, his mother reports it is actually a variety of foods that cause him trouble. He reports "food gets stuck" in throat frequently and that is why he feels the need to vomit. He points to his "lower neck and upper chest" when indicating where food gets stuck. Mr. Olivia was given the following consistencies: thins via straw, puree ( applesauce), mechanical soft (breakfast bar), pudding and solids. Mild pharyngeal residue was noted with mechanical soft and solids. The residue was easily cleared with a thin rinse. No aspiration was observed. After each swallow during the study Mr. Olivia coughed, gagged and belched. He commented that he felt like the liquids and food were not going down and were stuck. There were no instances of the food or liquid being stuck in the pharynx or upper esophageal area that were visiable on on fluoroscopy duing this study. Mr. Olivia did vomit a minimal amount of liquid after the study was complete. Speech therapy is not recommeded at this time. Mr. Olivia, his caregivers and physicians may consider further consultation with his aviation electronics technician to help determine the cause for his discomfort. Diet recommendation: Regular diet with thin liquids via a straw. Thank you for this consult. PLAN RECOMMENDATIONS Further skill serv. indicated No SWALLOW GUIDELINES Standard Aspiration Prec., Alt Bite w/Sip Thru Meal, Reflux Precautions, Other (Straw for liquids) PATIENT/CAREGIVER EDUCATION Able-recall/restate what told? Yes (with some reminding) Pt unable to ind. understands due to mental impairment Reinforcement needed? Yes RN educated on Diet Consistency, Swallow Guidelines Rehab Medicare G Code Plan Medicare/G Code eligible? 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
[2016-05-24 16:00] VITALS: BP 142/82
[2016-05-24] MEDS ORDERED: ERYTHROMYCIN250 M2 PO (16:55)
[2016-05-24] MEDS ORDERED: CYTOTEC 200MC200 MC1 PO (16:55)
--- NOTE | 2016-05-24 16:57 | DISCHARGE SUMMARY STANDARD ---
Demographics Admit date: 05/20/16 Discharge date: 05/24/16 History of present illness History of present illness Osbaldo is a 66-year-old white male who is intellectually disabled, lives with his mother and has so for all of his life with so far fairly good living situation. He has suffered from essential tremor and has been on beta андрей and primidone for many decades. Recently he's had some episodes of vomiting, reflux disease and increasing abdominal pain, underwent upper endoscopy by Dr. Hollins which revealed hiatal hernia and significant gastritis-a previously known diagnosis and has been placed on Reglan and proton pump inhibitor. Came to my office early last week with increasing problems with tremor, ataxia and some confusion over his baseline. I recommended stopping the Reglan, cutting back on primidone. Family really has noticed no difference except tremor has become worse and yesterday he had a severe episode of abdominal pain which prompted some acting out behaviors and agitation including throwing things in the household and striking out at family which is very unusual for him. Brought to the emergency department where laboratory studies were fairly nondiagnostic CT scan showed findings consistent with sigmoid volvulus in the left lower quadrant. Admitted for IV fluids and pain control and surgery consultation. This morning he's been fine overnight vis--vis agitation behaviors and reports that he's feeling better but does note that he occasionally has pain in his left lower quadrant that "feels like a fire on the inside." Hospital Course Hospital Course: Patient was admitted as noted above, surgical consultation was noted, appreciated. Discussed extensively on rounds. Clayton that this did not represent true volvulus, GI was involved with Dr. Hollins who felt that this was probably a consequence of Reglan therapy along with recently recommended high-fiber diet recommended backing off of these medications and using misoprostol and erythromycin for motility issues. This was done and the patient improved nicely. Had some swallowing/regurgitation problems that were worked up with modified barium swallow which looked good. Patient is able to handle intermittent meals well including all 3 meals today. He'll be discharged home with medications and followup as noted. Discharge diagnoses Problem List 1. Abdominal pain Medications Medications: Discharge meds are as noted. Follow up Follow up in office in: 7 DAYS with: Nikko Barton MD at 0709
[2016-05-24 17:38] VITALS: BP 142/82
--- NOTE | 2016-05-25 14:02 | RADIOLOGY REPORT PS360 ---
ESOPHAGUS W/CINERADIOGRAPHY: 05/24/2016 7:54 AM CLINICAL HISTORY: ORDERING PHYSICIAN: Nikko Barton MD PATIENT AGE: 66 years COMPARISON: TECHNIQUE: Patient administered varying consistencies of barium contrast, while viewed in lateral position under real-time fluoroscopy with cine recording. FLUOROSCOPY TIME: 3 minutes and 46 seconds The study was performed in conjunction with speech pathologist. Please see that report & recommendations. FINDINGS: Patient was given varying consistencies of barium. This consisted of thin, putting, pureed, mechanical soft, solid. There was no evidence of vestibular penetration or tracheal aspiration. There was mild pharyngeal residue noted with mechanical soft and solid's easily cleared with thin rinse. After each swallow of every consistency the patient coughed CAD and belched IMPRESSION: No evidence of aspiration or penetration. Mild pharyngeal residual. Please see speech pathologist report and recommendations.
== END 2016-05-24 17:30 | disposition home or self-care (01) | DRG 392 ==
LOC: ER 15:58 → 2ND 19:04 → ER 19:04 → 2ND 19:21
PROVIDERS: General Practice
DX: R10.10 Upper abdominal pain, unspecified (principal); K22.70 Barrett's esophagus without dysplasia; T42.6X5A Adverse effect of other antiepileptic and sedative-hypnotic drugs, initial encounter; T45.0X5A Adverse effect of antiallergic and antiemetic drugs, initial encounter; Y92.019 Unspecified place in single-family (private) house as the place of occurrence of the external cause; R45.1 Restlessness and agitation; R26.0 Ataxic gait; G25.0 Essential tremor; Z91.81 History of falling; K59.09 Other constipation; F79 Unspecified intellectual disabilities
CPT/HCPCS: G0378; J2405

== ENCOUNTER 2016-10-16 09:00 | Day surgery (SDC) | payer MEDICARE, MEDICAID ==
[~2016-10-16] VITALS: Ht 162.6 cm; Wt 74.8 kg
[~2016-10-16 09:00] MED LIST changes: +CIPRODEX 0.3%-7.5 ML OT; +CITRACAL + BON1 EACH PO; +CYTOTEC 200MC200 MC1 PO; +ERY-TAB250 MG PO; +ERYTHROMYCIN250 M2 PO; +INDERAL10 MG PO; +INDERAL20 MG PO; +OMEPRAZOLE20 MG PO; -OMEPRAZOLE40 MG PO; +PROMETHAZINE12.5 MG PR; +SYNTHROID0.025 MG PO
--- NOTE | 2016-10-16 10:56 | Operative Note ---
Upper GI Endoscopy Procedure date: 10/16/16 Date of : 54 Procedure:Upper GI Endoscopy Esophagogastroduodenoscopy with cold biopsies Indications: Mr. Olivia is a 66-year-old gentleman with Jacobson's esophagus. This was diagnosed 5 or 6 years ago. He has been on omeprazole. He also has been on MiraLAX. Recently, he has had some recurrent belching, bloating and recurrent regurgitation. His EGD on April 17, 2016 did show long segment Jacobson's esophagus with C5M6 Pomerene classification. Biopsies from 32 cm from the incisors showed indeterminate for dysplasia. The patient reports returns for surveillance endoscopy. The patient did have a reaction to Reglan and is now on erythromycin 250 mg by mouth before meals. He also takes omeprazole. Performing Provider: Javid Hollins MD Referring Provider: Nikko Barton M.D. Sedation: MAC sedation Procedure: Prior to the procedure, a history and physical exam was performed, and patients medications and allergies were reviewed. The risks and benefits of the procedure and the sedation options and risks were discussed with the patient. All questions were answered and informed consent was obtained. The patient was brought to the procedure room. Patient identification and proposed procedure were verified by the physician and the nurse. The patient was placed in a left lateral decubitus position and the scope was passed under direct vision. Throughout the procedure, the patient's blood pressure, pulse, and oxygen saturations were monitored continuously. The endoscope was introduced through the mouth, and advanced to the second part of duodenum. The upper GI endoscopy was accomplished without difficulty. The patient tolerated the procedure well. Findings: The scope was passed directly into the upper esophagus and advanced to the third portion of the duodenum. The post bulbar duodenum and duodenal bulb were normal with normal mucosa and conniventes. There was mild scalloping of the conniventes and biopsies were obtained to rule out celiac disease. The scope was withdrawn through a normal duodenal bulb and pylorus into the stomach. There was bile reflux with mild linear erythema of the antrum consistent with linear reactive gastritis. The remainder of the antrum, body and fundus of the stomach were grossly normal. Upon retroflexion there was a 3-4 cm medium sized hiatal hernia. The scope was then withdrawn into the esophagus. There was a longer segment Jacobson's esophagus with the top of the gastric folds/gastroesophageal junction at 36 cm from the incisors. The diaphragmatic hiatus was at 40 cm from the incisors. The squamocolumnar junction/Z line was at 30/31 cm from the incisors. Narrow band imaging was used to locate areas that appeared to be more dysplastic and these areas were biopsied using cold biopsies at 35 cm and 30/31 cm from the incisors. There was no evidence of reflux esophagitis. There were larger proximal esophageal inlet patches. Immediate complications: None EBL (ml): 0 Impression: 1. Long segment Jacobson's esophagus Pomerene classification C5M6 status post direct biopsies using narrow band imaging 2. Medium-sized 3-4 cm hiatal hernia 3. Proximal esophageal inlet patch 4. Linear reactive gastritis with bile reflux Recommendations: I would recommend that we continue promotility therapy and fiber bowel regimen. I will follow up the biopsies to exclude dysplasia. If there is no evidence of dysplasia, I would recommend repeat surveillance endoscopy again in 2 years. at 2209
[2016-10-16 14:15] VITALS: BP 122/67
== END 2016-10-16 11:45 | disposition home or self-care (01) ==
LOC: SDC 09:00
PROVIDERS: Internal Medicine Gastroenterology
PROC: 0DB58ZX Excision of Esophagus, Via Natural or Artificial Opening Endoscopic, Diagnostic (ICD-10-PCS; 2016-10-16)
PROC: 0DB98ZX Excision of Duodenum, Via Natural or Artificial Opening Endoscopic, Diagnostic (ICD-10-PCS; principal; 2016-10-16 10:00)
DX: K22.719 Barrett's esophagus with dysplasia, unspecified (principal); K44.9 Diaphragmatic hernia without obstruction or gangrene; E78.70 Disorder of bile acid and cholesterol metabolism, unspecified